=== PATIENT | female | born 1940 | race Caucasian/White ===

== ENCOUNTER 2022-03-30 15:12 | Emergency (ER) | payer MEDICARE ==
[~2022-03-30] VITALS: Ht 162.6 cm; Wt 63.0 kg
--- NOTE | 2022-03-30 15:35 | NUR ---
[email or web address], medical screening exam in progress
[2022-03-30] MEDS ORDERED: TDAP DIPH,PERTUSS,TET VAC/PF 0.5 ML DISP.SYRIN IM ONE ×2 (15:45)
[2022-03-30] MEDS ORDERED: LIDOCAINE 1%-EPI 1:100,000 20 ML VIAL IJ ONE (16:15)
[2022-03-30] MEDS ORDERED: LIDOCAINE 1%-EPI 1:100,000 20 ML VIAL ONE (16:19)
--- NOTE | 2022-03-30 17:46 | NUR ---
Patient discharged to home in stable condition with steady gait. Written and verbal after care instructions given to patient, pt's doctor- and patient's adult daughter. Patient and family verbalized understanding and compliance of instructions. Stressed follow up with primary doctor or return to ER for worsening s/s. Patient and doctor- said that [id number].
== END 2022-03-30 17:48 | disposition home or self-care (01) ==
LOC: ER 15:12
DX: S01.81XA Laceration without foreign body of other part of head, initial encounter (principal); S09.90XA Unspecified injury of head, initial encounter; W01.198A Fall on same level from slipping, tripping and stumbling with subsequent striking against other object, initial encounter; Y93.89 Activity, other specified; Y92.89 Other specified places as the place of occurrence of the external cause; M06.9 Rheumatoid arthritis, unspecified; Z88.0 Allergy status to penicillin; Z88.2 Allergy status to sulfonamides
CPT/HCPCS: 99285; 70450; 72125; 90715; 90471; 12013; J3490; A4663